=== PATIENT | male | born 1965 | race Caucasian/White ===

== ENCOUNTER 2016-10-13 18:35 | Emergency (ER) | payer BC ==
[~2016-10-13] VITALS: Ht 170.1 cm; Wt 88.5 kg
[~2016-10-13 18:35] MED LIST: ANAPROX DS550 MG PO; BACTRIM DS 8001 TA1 PO; CEPHALEXIN500 M1 PO; KEFLEX500 MG PO; NORCO 5-325 TA1 EACH PO; VICODIN 5/500 505 MG PO; VICODIN ES 7501 TAB PO
[2016-10-13 18:39] VITALS: BP 129/81
[2016-10-13] MEDS ORDERED: PREDNISONE10 MG PO (18:55)
== END 2016-10-13 22:09 | disposition home or self-care (01) ==
LOC: ED 18:35
DX: M70.31 Other bursitis of elbow, right elbow (principal); R03.0 Elevated blood-pressure reading, without diagnosis of hypertension; Y93.9 Activity, unspecified; F17.200 Nicotine dependence, unspecified, uncomplicated

== ENCOUNTER 2019-09-28 19:14 | Emergency (ER) | payer OTHER, BC ==
[~2019-09-28] VITALS: Ht 170.1 cm; Wt 90.7 kg
[~2019-09-28 19:14] MED LIST changes: +PREDNISONE10 MG PO
[2019-09-28 19:27] VITALS: BP 137/73
[2019-09-28] MEDS ORDERED: ANAPROX DS550 MG PO (21:12)
[2019-09-28] MEDS ORDERED: METHOCARBAMOL500 M1 PO (21:12)
== END 2019-09-28 23:02 | disposition home or self-care (01) ==
LOC: ED 19:14
DX: S16.1XXA Strain of muscle, fascia and tendon at neck level, initial encounter (principal); S39.012A Strain of muscle, fascia and tendon of lower back, initial encounter; F17.200 Nicotine dependence, unspecified, uncomplicated; Z88.5 Allergy status to narcotic agent; Z79.899 Other long term (current) drug therapy; V89.2XXA Person injured in unspecified motor-vehicle accident, traffic, initial encounter; Y93.89 Activity, other specified; Y92.89 Other specified places as the place of occurrence of the external cause; Y99.8 Other external cause status